=== PATIENT | female | born 1990 | race African-American/Black ===

== ENCOUNTER 2021-02-22 09:04 | Emergency (ER) | payer MEDICAID, OTHER ==
[~2021-02-22] VITALS: Ht 157.5 cm; Wt 90.0 kg
[~2021-02-22 09:04] MED LIST: ATIVAN
[2021-02-22 09:47] VITALS: BP 110/70
== END 2021-02-22 09:49 | disposition home or self-care (01) ==
LOC: ER 09:04
DX: O26.893 Other specified pregnancy related conditions, third trimester (principal); J06.9 Acute upper respiratory infection, unspecified; Z20.822 Contact with and (suspected) exposure to COVID-19; Z3A.31 31 weeks gestation of pregnancy
CPT/HCPCS: 99283; C9803; U0003

== ENCOUNTER 2021-04-02 03:02 | Observation (INO) | payer MEDICAID ==
[~2021-04-02] VITALS: Ht 157.5 cm; Wt 95.3 kg
[2021-04-02] MEDS ORDERED: LACTATED RINGERS 1,000 ML IV SCH (04:30)
[2021-04-02 05:53] LABS: CLARITY URINE CLEAR (CLEAR); COLOR URINE YELLOW (YELLOW); KETONES URINE NEGATIVE (NEGATIVE); PROTEIN URINE NEGATIVE (NEGATIVE)
[2021-04-02 05:54] LABS: LEUKOCYTE ESTERASE URINE NEGATIVE (NEGATIVE); NITRITE URINE NEGATIVE (NEGATIVE); OCCULT BLOOD URINE NEGATIVE (NEGATIVE); UROBILINOGEN URINE 0.2 E.U./dL (0.2-1.0)
== END 2021-04-02 08:38 | disposition home or self-care (01) ==
LOC: 8 EST LDRP 03:02
PROVIDERS: ADMIT Obstetrics & Gynecology; ATTEND Obstetrics & Gynecology
DX: O62.9 Abnormality of forces of labor, unspecified (principal); Z3A.31 31 weeks gestation of pregnancy
CPT/HCPCS: 59025; 76805; 76817; 76818; 81003; 96360; 96361; G0378; 99281

== ENCOUNTER 2021-07-22 22:09 | Emergency (ER) | payer MEDICAID ==
[~2021-07-22] VITALS: Ht 157.5 cm; Wt 82.9 kg
[2021-07-22] MEDS ORDERED: LORAZEPAM 0.5MG TABLET PO ONE (22:45)
[2021-07-23] MEDS ORDERED: LORA-249 MT (00:36)
[2021-07-23 00:40] VITALS: BP 124/84
== END 2021-07-23 00:46 | disposition home or self-care (01) ==
LOC: ER 22:09
DX: F41.9 Anxiety disorder, unspecified (principal); R07.89 Other chest pain; F12.10 Cannabis abuse, uncomplicated; F15.10 Other stimulant abuse, uncomplicated
CPT/HCPCS: 71045; 93005; 99283

== ENCOUNTER 2021-09-01 09:00 | Emergency (ER) | payer MEDICAID ==
[~2021-09-01] VITALS: Ht 160 cm; Wt 82.0 kg
[~2021-09-01 09:00] MED LIST changes: +LORA-249 MT
[2021-09-01] MEDS ORDERED: MAGNESIUM/ALUMINUM HYDROXIDE/SIMETHICONE 30ML UDC PO STA (09:27)
[2021-09-01] MEDS ORDERED: VISCOUS LIDOCAINE 2% 15 ML UDC PO STA (09:27)
[2021-09-01] MEDS ORDERED: FAMOTIDINE 20MG/2ML VIAL IV ONE (09:30)
[2021-09-01] MEDS ORDERED: SODIUM CHLORIDE 0.9% 1,000 ML IV ONE (09:30)
[2021-09-01 10:00] LABS: BASOPHILS % 1.1 % (0.0-2.0); HEMATOCRIT. 34.8 % (36.0-48.0); HEMOGLOBIN. 11.7 g/dL (12.0-16.0); LYMPHOCYTES % 14.3 % (20.0-50.0); MEAN CORPUSCULAR HEMOGLOBIN 30.5 pg (28.0-32.0); MEAN CORPUSCULAR VOLUME 90.9 fL (81.0-99.0); MEAN PLATELET VOLUME 7.5 fl (7.4-10.4); NEUTROPHILS % 75.6 % (40.0-76.0); PLATELET 287 x1000/uL (130-400); RED BLOOD CELL COUNT 3.83 mill/uL (4.2-5.4); RED CELL DISTRIBUTION WIDTH 13.9 % (11.6-14.6)
[2021-09-01 10:08] LABS: CHLORIDE 107 mEq/L (98-107)
[2021-09-01 10:14] LABS: INR 0.9; PROTHROMBIN TIME 10.2 sec (9.6-11.0)
[2021-09-01 10:16] LABS: HCG SCREEN NEGATIVE
[2021-09-01 11:01] LABS: CLARITY URINE CLEAR (CLEAR); COLOR URINE YELLOW (YELLOW); KETONES URINE NEGATIVE (NEGATIVE); LEUKOCYTE ESTERASE URINE 1+ (NEGATIVE); NITRITE URINE NEGATIVE (NEGATIVE); OCCULT BLOOD URINE NEGATIVE (NEGATIVE); PH URINE 6.5 (4.5-8.0); PROTEIN URINE NEGATIVE (NEGATIVE); SPECIFIC GRAVITY URINE 1.011 (1.005-1.030); UROBILINOGEN URINE 0.2 E.U./dL (0.2-1.0)
[2021-09-01] MEDS ORDERED: FAMO-135 MT (11:41)
[2021-09-01] MEDS ORDERED: ONDA4TAB5 MT (11:41)
[2021-09-01 12:10] VITALS: BP 137/84
== END 2021-09-01 12:39 | disposition home or self-care (01) ==
LOC: ER 09:00
DX: K29.70 Gastritis, unspecified, without bleeding (principal); F12.10 Cannabis abuse, uncomplicated; F15.10 Other stimulant abuse, uncomplicated; Z98.890 Other specified postprocedural states
CPT/HCPCS: 36415; 76705; 80053; 81003; 83690; 84703; 85025; 85610; 87086; 93005; 96361; 96374; 99285; J3490; J7030

== ENCOUNTER 2022-06-27 15:57 | Emergency (ER) | payer MEDICAID, OTHER ==
[~2022-06-27] VITALS: Ht 162.6 cm; Wt 80.0 kg
[~2022-06-27 15:57] MED LIST changes: +FAMO-135 MT; +ONDA4TAB5 MT
[2022-06-27] MEDS: SODIUM CHLORIDE 0.9% 1,000 ML IV ONE (18:38)
[2022-06-27] MEDS: ONDANSETRON HCL 4MG/2ML INJ IV STA (18:38)
[2022-06-27 18:48] LABS: CLARITY URINE CLEAR (CLEAR); COLOR URINE YELLOW (YELLOW); KETONES URINE TRACE (NEGATIVE); LEUKOCYTE ESTERASE URINE 1+ (NEGATIVE); NITRITE URINE POSITIVE (NEGATIVE); OCCULT BLOOD URINE 3+ (NEGATIVE); PH URINE 5.5 (4.5-8.0); PROTEIN URINE TRACE (NEGATIVE); SPECIFIC GRAVITY URINE 1.025 (1.005-1.030); UROBILINOGEN URINE 0.2 E.U./dL (0.2-1.0)
[2022-06-27 18:48] LABS: HEMATOCRIT. 35.6 % (36.0-48.0); HEMOGLOBIN. 12.1 g/dL (12.0-16.0); MEAN CORPUSCULAR VOLUME 94.4 fL (81.0-99.0); MEAN PLATELET VOLUME 7.7 fl (7.4-10.4); PLATELET 332 x1000/uL (130-400); RED BLOOD CELL COUNT 3.77 mill/uL (4.2-5.4); RED CELL DISTRIBUTION WIDTH 14.2 % (11.6-14.6)
[2022-06-27 18:55] LABS: CHLORIDE 102 mEq/L (98-107)
[2022-06-27 19:02] LABS: HCG SCREEN NEGATIVE
[2022-06-27 19:31] LABS: PLATELET ESTIMATE NORMAL
[2022-06-27] MEDS ORDERED: CEPH500C2 MT (21:19)
[2022-06-27] MEDS: SODIUM CHLORIDE 0.9% 1,000 ML IV NR (21:23)
[2022-06-27 22:08] VITALS: BP 126/82
== END 2022-06-27 22:21 | disposition home or self-care (01) ==
LOC: ER 15:57
DX: N39.0 Urinary tract infection, site not specified (principal); F15.10 Other stimulant abuse, uncomplicated; F12.10 Cannabis abuse, uncomplicated; F41.9 Anxiety disorder, unspecified
CPT/HCPCS: 36415; 80053; 81003; 83690; 84703; 85025; 87210; 96361; 96374; 99283; J2405; J7030

== ENCOUNTER 2023-01-03 21:34 | Emergency (ER) | payer MEDICAID, OTHER ==
[~2023-01-03] VITALS: Ht 157.5 cm; Wt 90.0 kg
[~2023-01-03 21:34] MED LIST changes: +CEPH500C2 MT
[2023-01-03] MEDS ORDERED: IBUPROFEN 400MG TABLET PO ONE (22:30)
[2023-01-03] MEDS ORDERED: HYDROCODONE/ACETAMINOPHEN 5/325MG TABLET PO ONE (22:30)
[2023-01-04] MEDS ORDERED: IBUP-2028 MT (01:16)
[2023-01-04 04:06] VITALS: BP 131/71
== END 2023-01-04 12:12 | disposition home or self-care (01) ==
LOC: ER 21:34
DX: R60.9 Edema, unspecified (principal); F12.10 Cannabis abuse, uncomplicated; F15.10 Other stimulant abuse, uncomplicated; R51.9 Headache, unspecified
CPT/HCPCS: 70486; 99284